=== PATIENT | female | born 1965 ===

== ENCOUNTER → 2022-04-06 | Outpatient (CLI) | payer OTHER | END | disposition home or self-care (01) | LOC: LAB SHORT 10:05 → LAB 10:05 | DX: N39.0 Urinary tract infection, site not specified (principal) | CPT/HCPCS: 87086 ==

== ENCOUNTER 2022-10-25 10:52 | Day surgery (SDC) | payer OTHER ==
[~2022-10-25] VITALS: Ht 162.6 cm; Wt 91.2 kg
[2022-10-25] MEDS ORDERED: LISI20 (11:07)
[2022-10-25] MEDS ORDERED: METF500 (11:08)
[2022-10-25] MEDS ORDERED: GABA100 (11:08)
[2022-10-25] MEDS ORDERED: Prozac40 MG (11:08)
[2022-10-25] MEDS ORDERED: ABILIFY MYCITE5 M2 (11:08)
[2022-10-25] MEDS ORDERED: FISH OIL 1,2001 EAC7 (11:09)
[2022-10-25] MEDS ORDERED: PRAZOSIN HCL1 GM (11:09)
[2022-10-25] MEDS ORDERED: Vitamin D1000 UNI1 (11:09)
[2022-10-25 13:22] VITALS: BP 115/73
== END 2022-10-25 12:55 | disposition home or self-care (01) ==
LOC: ORSCSDS 10:52
PROVIDERS: Internal Medicine Gastroenterology
PROC: 0DBK8ZX Excision of Ascending Colon, Via Natural or Artificial Opening Endoscopic, Diagnostic (ICD-10-PCS; principal; 2022-10-25 13:00)
PROC: 0DBL8ZX Excision of Transverse Colon, Via Natural or Artificial Opening Endoscopic, Diagnostic (ICD-10-PCS; principal; 2022-10-25 13:00)
PROC: 0DBN8ZX Excision of Sigmoid Colon, Via Natural or Artificial Opening Endoscopic, Diagnostic (ICD-10-PCS; principal; 2022-10-25 13:00)
PROC: 0DBM8ZX Excision of Descending Colon, Via Natural or Artificial Opening Endoscopic, Diagnostic (ICD-10-PCS; principal; 2022-10-25 13:00)
PROC: 0DBH8ZX Excision of Cecum, Via Natural or Artificial Opening Endoscopic, Diagnostic (ICD-10-PCS; principal; 2022-10-25 13:00)
DX: Z12.11 Encounter for screening for malignant neoplasm of colon (principal); D12.3 Benign neoplasm of transverse colon; D12.5 Benign neoplasm of sigmoid colon; K63.5 Polyp of colon; K57.30 Diverticulosis of large intestine without perforation or abscess without bleeding; K64.8 Other hemorrhoids; I10 Essential (primary) hypertension; F17.290 Nicotine dependence, other tobacco product, uncomplicated; Z79.899 Other long term (current) drug therapy
CPT/HCPCS: 88305; J0330; J0461; J2001; J2405; J2704; J7120; Q9968